=== PATIENT | male | born 1980 | race Caucasian/White ===

== ENCOUNTER 2017-01-27 12:46 | Emergency (ER) | payer OTHER ==
[~2017-01-27 12:46] MED LIST: ALBUTEROL17 GM INH; EFFEXOR75 M3 PO
[2017-01-27] MEDS ORDERED: WELLBUTRIN (13:03)
[2017-01-27] MEDS ORDERED: EFFEXOR (13:03)
[2017-01-27] MEDS ORDERED: ZYRTEC (13:03)
== END 2017-01-27 13:55 | disposition home or self-care (01) ==
LOC: SED 12:46
DX: S39.012A Strain of muscle, fascia and tendon of lower back, initial encounter (principal); J45.909 Unspecified asthma, uncomplicated; F17.200 Nicotine dependence, unspecified, uncomplicated; Z79.899 Other long term (current) drug therapy; X58.XXXA Exposure to other specified factors, initial encounter
CPT/HCPCS: 96372; 99283; J1885; J2360

== ENCOUNTER 2017-03-10 15:44 | Emergency (ER) | payer OTHER ==
[~2017-03-10 15:44] MED LIST changes: +EFFEXOR; +WELLBUTRIN; +ZYRTEC
[2017-03-10 18:07] LABS: BASOPHIL% 0.5 % (0-2.5); EOSINOPHIL# 0.1 X10e3 (0-0.7); EOSINOPHIL% 1.6 % (0.0-7.0); HEMATOCRIT 46.6 % (38.0-50.0); HEMOGLOBIN 15.8 gm/dL (13.0-16.0); LYMPHOCYTE# 1.7 X10e3 (1.0-3.5); MEAN CELL VOLUME 86.7 FL (83-96); MEAN CORPUSCULAR HEMOGLOBIN 29.4 PG (28-34); MEAN CORPUSCULAR HGB CONC 33.9 g/dL (30-36); MEAN PLATELET VOLUME 7.9 FL (6.5-11.5); MONOCYTE# 0.6 X10e3 (0-1.0); MONOCYTE% 8.1 % (3.0-12.0); NEUTROPHIL# 4.9 X10e3 (1.5-7.1); NEUTROPHIL% 66.8 % (40-75); PLATELET COUNT 272 X10e3 (140-420); RED BLOOD COUNT 5.37 X10e (3.90-5.60); WHITE BLOOD COUNT 7.4 X10e3 (4.0-10.5)
[2017-03-10 18:08] LABS: DIFF IND NO
[2017-03-10 18:19] LABS: AMPHETAMINE NEG (NEG); BARBITURATES NEG (NEG); BENZODIAZEPINES NEG (NEG); COCAINE NEG (NEG); MARIJUANA NEG (NEG); OPIATES NEG (NEG); TRICYCLIC ANTIDEPRESSANTS NEG (NEG); U METHADONE NEG (NEG)
[2017-03-10 18:29] LABS: BLOOD UREA NITROGEN 15 mg/dL (9-23); CALCIUM SERUM 9.5 mg/dL (8.4-10.2); CARBON DIOXIDE 27 mmol/L (22-31); CHLORIDE 104 mmol/L (100-111); GLOM FILT RATE Estimated 96.4 mL/min (>60); GLUCOSE FASTING 104 mg/dL (70-110); POTASSIUM 3.8 mmol/L (3.5-5.1); SODIUM 138 mmol/L (135-145)
[2017-03-10 18:46] LABS: ALCOHOL BLOOD <5 mg/dL (0)
== END 2017-03-11 09:20 | disposition short-term general hospital (02) ==
LOC: CED 15:44
PROVIDERS: Emergency Medicine
DX: S61.512A Laceration without foreign body of left wrist, initial encounter (principal); J45.909 Unspecified asthma, uncomplicated; R45.851 Suicidal ideations; F17.200 Nicotine dependence, unspecified, uncomplicated; Z79.899 Other long term (current) drug therapy; X78.9XXA Intentional self-harm by unspecified sharp object, initial encounter
CPT/HCPCS: 80048; 80307; 85025; 94640; 99285; G0480

== ENCOUNTER 2017-03-10 18:00 | Inpatient (IN) | payer OTHER ==
--- NOTE | ~2017-03-10 | CO ---
Unit #: [id number] #: [id number] Patient: KARLOS BURGOS [id number] [place] [address] [id number] MR#: [id number] NAME: KARLOS BURGOS ROOM: P259 Age: 36 Sex: M Admission Date: 03/11/2017 : 1980 Attending Physician: Rudy Marquez M.D. Primary Care Physician: Maura Landry Consultation Date: 03/12/2017 CONSULTATION REPORT SUBJECTIVE Karlos is a 36-year-old who complains of sore throat and with a low-grade temperature. Strep screen was negative. On exam, his throat was red without exudate. Neck was supple without lymphadenopathy. ASSESSMENT Pharyngitis, most likely viral. PLAN He is being discharged on 03/13/2017. He knows to follow up with his PCP. Dictated by... Merry Stewart P.A.-C. for Joaquin Rose/caleb TD: 03/14/2017 02:24 JOB #: [id number] CONSULTATION REPORT Page 1 of 1 X Merry Stewart CONSULTATION REPORT
--- NOTE | ~2017-03-10 | HP ---
Unit #: [id number] #: [id number] Patient: KARLOS BURGOS [id number] [place] [address] [id number] MR#: [id number] NAME: KARLOS BURGOS ROOM: P259 Age: 36 Sex: M Admission Date: 03/11/2017 : 1980 Attending Physician: Rudy Marquez M.D. Admitting Physician: Rudy Marquez M.D. Primary Care Physician: Maura Landry HISTORY AND PHYSICAL HISTORY OF PRESENT ILLNESS Karlos is a 36 year old admitted to [address] [place] [address] with depression and after cutting his wrist after an argument with his . He is admitted on a 72 hour hold. PAST MEDICAL HISTORY Asthma. PAST SURGICAL HISTORY Nothing reported. ALLERGIES No known drug allergies. SOCIAL HISTORY Smokes one-half pack per day. Denies alcohol and illicit drug use. FAMILY HISTORY Medically noncontributory. REVIEW OF SYSTEMS CONSTITUTIONAL: No fever or chills. HEENT: Denies any sore throat, ear pain or runny nose. CARDIOVASCULAR: Denies chest pain, irregular heart rhythm or palpitations. CHEST: Denies shortness of breath or cough. No hemoptysis. GASTROINTESTINAL: Denies nausea, vomiting, diarrhea or chronic constipation. ENDOCRINE: Denies history of increased thirst or urination. No recent significant weight loss or gain. GENITOURINARY: Denies dysuria, frequency, or hematuria. SKIN: Denies any rashes. HEMATOLOGIC: Denies history of increased bleeding or bruising. MUSCULOSKELETAL: Denies any hot, swollen joints. No generalized muscle pain. NEUROLOGIC: Denies problems with vision or speech. No frequent, severe headaches. No numbness, tingling or weakness in any extremities. Denies loss of bladder or bowel control. CURRENT MEDICATIONS 1. Milk of Magnesia p.r.n. 2. Maalox p.r.n. 3. Tylenol p.r.n. Unit #: [id number] #: [id number] Patient: KARLOS BURGOS 4. Proventil inhaler p.r.n. 5. Geodon 40 mg q day 6. Nicotine patch 7 mg q day 7. Wellbutrin XL 300 mg q.a.m. PHYSICAL EXAMINATION GENERAL: Alert, well-nourished, in no apparent distress. VITAL SIGNS: Blood pressure 130/74, heart rate 76, respirations 16, temperature 98.6. WEIGHT: 210 pounds. HEIGHT: 5'8". SKIN: Warm and dry without rash. He has a significant laceration along his left wrist. The area has been durmabonded. There is adequate skin approximation. There is no increased redness, swelling, heat or pus noted. Neurovascular is intact. HEENT: Normocephalic. TMs not viewed. Oral and nasal passages clear. Conjunctivae clear. Pupils equal, round and reactive to light and accommodation. Extraocular movements intact. NECK: Supple without lymphadenopathy or thyromegaly. HEART: Regular rate and rhythm without murmur. LUNGS: Clear. ABDOMEN: Soft, nontender. : Not done. EXTREMITIES: No evidence of cyanosis, clubbing or edema. Moves all extremities without focal deficit. NEUROLOGICAL: Grossly within normal limits. Cranial Nerves: II: Visual mims are intact. III, IV AND : Extraocular movements are intact. Pupils are equal, round and reactive to light. V: Facial sensation is grossly normal. VII: Facial movements and expression are normal. VIII: Auditory acuity grossly intact. IX, X: Uvula is midline. Phonation is normal. XI: Patient shrugs shoulders and turns head normally. XII: Tongue protrudes in the midline. Sensory and Motor Function: Sensory and motor sensation is grossly normal. Motor: moves all extremities well. Coordination: Gait is normal. Deep Tendon Reflexes: Intact. IMPRESSION 1. Psychiatric admission. 2. Recent self-inflicted laceration to his left wrist. RECOMMENDATIONS PSYCHIATRIC: Per psychiatrist. MEDICAL: 1. I see no contraindications to participating in facility's activities. 2. Keep the area clean with soap and water. No further Rx. MEDICAL PROGNOSIS Good. MEDICAL CONDITION Stable. Unit #: [id number] #: [id number] Patient: KARLOS BURGOS Dictated by... Merry Stewart P.A.-C. for Joaquin Rose/gagan TD: 03/11/2017 22:27 JOB #: [id number] HISTORY AND PHYSICAL Page 1 of 1 X Merry Stewart HISTORY AND PHYSICAL
--- NOTE | ~2017-03-10 | DS ---
Unit #: [id number] #: [id number] Patient: MONO BURGOS [id number] [place] [address] [id number] I MR#: [id number] NAME: MONO BURGOS ROOM: [facility] Age: 36 Sex: M Admission Date: 03/11/2017 : 1980 Discharge Date: 03/13/2017 Attending Physician: Rudy Marquez M.D. Primary Care Physician: Maura Landry DISCHARGE SUMMARY REASON FOR ADMISSION The patient is a 36-year-old white male, admitted to the [facility] after a self-inflicted wrist laceration following an argument with his . HOSPITAL COURSE The patient was admitted to the [facility] unit and placed on suicide precautions. He was continued on previously prescribed medications and venlafaxine was increased from 37.5 to 75 mg daily. The patient tolerated the medications well and was contrite over the ensuing hospitalization. He requested discharge on 03/12/2017, but agreed to one further day of observation. By 03/13/2017, the patient remained in bright spirits and requested discharge, it was so ordered. FINAL DIAGNOSES 1. Major depressive disorder, recurrent, moderate. 2. Adjustment disorder, depressed mood. 3. Asthma. DISPOSITION ON DISCHARGE The patient was discharged on the following medications; Effexor XR 75 mg q.a.m. for depression, Wellbutrin XL 300 mg daily for depression, Proventil HFA 2 puffs q.4 hours p.r.n. shortness of air. DISCHARGE INSTRUCTIONS No dietary or physical restrictions were placed on the patient at the time of discharge. FOLLOWUP Followup will take place through the auspices of community mental health resources. PROGNOSIS The patient's prognosis is considered good. Dictated by... Rudy Marquez M.D. CB/caleb TD: 03/14/2017 07:52 JOB #: [id number] Unit #: [id number] #: [id number] Patient: MONO BURGOS DISCHARGE SUMMARY Page 1 of 1 X Rudy Marquez MD X DISCHARGE SUMMARY
--- NOTE | ~2017-03-10 | PA ---
Unit #: [id number] #: [id number] Patient: MONO BURGOS [id number] [facility] [address] [place] [address] [id number] I MR#: [id number] NAME: MONO BURGOS ROOM: P259 Age: 36 Sex: M Admission Date: 03/11/2017 : 1980 Date of Assessment: 03/12/2017 Attending Physician: Rudy Marquez M.D. Admitting Physician: Rudy Marquez M.D. Primary Care Physician: Maura Landry PSYCHIATRIC ASSESSMENT IDENTIFYING INFORMATION The patient is a 36-year-old white male, admitted to the [address] [place] [address] unit after a he had sustained a self-inflicted wrist laceration. INFORMANT(S) Patient, reliability is good. CHIEF COMPLAINT "I did something crazy." HISTORY OF PRESENT ILLNESS The patient is a 36-year-old white male, who is currently followed at [facility]. He is prescribed Effexor and Wellbutrin through the auspices of that agency. He also reports that he has been prescribed Geodon but is not compliant with that medication. The patient reports that he and his had been involved in an argument in which she told him that she hated him and this prompted him to make a cut on his wrist which did not require suturing but did require "super glue." The patient is today contrite over this episode and states that he and his have reconciled and he is requesting discharge from the hospital and is denying current suicidal ideation. He did not write a suicide note and reports no previous suicide attempts or gestures for psychiatric hospitalization. The patient used a wooden box maker to cut himself. He lives with his and three children and is employed as a appliance mechanic. He is appropriately contrite over the ensuing hospitalization and denies involvement of alcohol or street drugs in this episode. PAST PSYCHIATRIC HISTORY As above. PAST MEDICAL HISTORY Noncontributory. MEDICATIONS 1. Geodon 2. Wellbutrin 3. Venlafaxine 4. Ventolin ALLERGIES None. FAMILY HISTORY Unit #: [id number] #: [id number] Patient: MONO BURGOS Noncontributory. SOCIAL HISTORY The patient is employed as a appliance mechanic. He lives with his and three children. He denies use of alcohol, tobacco, or street drugs. His drug screen was negative. MENTAL STATUS EXAM At this time, reveals the patient to be a well-developed, well-nourished white male appearing his stated age, he is in no apparent physical distress at the time of the examination. He is awake, alert, and oriented in all spheres. His mood is mildly dysphoric. His affect congruent. Speech is generally relevant and coherent. There are no gross deficits to memory or cognition noted. Intelligence is judged to be in the average range based on fund of knowledge. The patient is cooperative throughout the interview. He is currently denying suicidal or homicidal ideations, or psychotic features. Judgment and insight appear to be intact. ASSETS Motivation for change. LIABILITIES None noted. DIAGNOSTIC IMPRESSION [place] I: Major depressive disorder, recurrent, moderate. Adjustment disorder with depressed mood. [place] II: [place] III: Asthma. Status post self-inflicted wrist laceration. HOSPITAL COURSE We will restart the patient's previously prescribed medications and discontinuing Geodon as he states that he is not taking this medication, I will increase his Effexor XR to a more definitive dose of 75 mg daily. ESTIMATED LENGTH OF STAY IN THE HOSPITAL Two days with follow up to take place through the auspices of [facility]. Dictated by... Rudy Marquez M.D. JAYCOB/kathy TD: 03/12/2017 13:19 JOB #: [id number] Unit #: [id number] #: [id number] Patient: MONO BURGOS PSYCHIATRIC ASSESSMENT Page 1 of 1 X Rudy Marquez MD X PSYCHIATRIC ASSESSMENT
[2017-03-12 09:54] LABS: URINE APPEARANCE CLEAR; URINE BILIRUBIN NEG (NEG); URINE BLOOD NEG (NEG); URINE COLOR YELLOW; URINE GLUCOSE NEG (NEG); URINE KETONE NEG (NEG); URINE LEUKOCYTE ESTERASE NEG (NEG); URINE NITRATE NEG (NEG); URINE PH 6.5 (5-8); URINE PROTEIN NEG (NEG)
== END 2017-03-13 14:50 | disposition home or self-care (01) | DRG 885 ==
LOC: P2L 03-11 09:53 → POF 03-11 09:53 → P2L 03-11 12:13
PROVIDERS: Specialist
DX: F33.1 Major depressive disorder, recurrent, moderate (principal); F17.210 Nicotine dependence, cigarettes, uncomplicated; F43.21 Adjustment disorder with depressed mood; J45.909 Unspecified asthma, uncomplicated; S61.519D Laceration without foreign body of unspecified wrist, subsequent encounter; X83.8XXD Intentional self-harm by other specified means, subsequent encounter
CPT/HCPCS: 81003; 87651

== ENCOUNTER 2017-04-28 20:26 | Emergency (ER) | payer OTHER ==
[~2017-04-28] VITALS: Ht 177.8 cm; Wt 95.2 kg
--- NOTE | ~2017-04-28 | CR63 ---
[facility]. [facility] A Service of [facility] RADIOLOGY TEXT RESULTS PATIENT: MONO BURGOS LOCATION: SED : [birth year] UNIT #: [id number] AGE: [address]: Tamiko Cosme APRN SEX: M ORDER DR: [id number] [address] [address] [id number] MR#: [id number] Acc #: [id number] NAME: MONO BURGOS : 1980 SEX: M STUDY DATE/TIME: 04/28/2017 21:07 UNIT: SED ROOM: STUDY DESCRIPTION: CR Chest 2 View Attending Physician: Tamiko Cosme A.P.R.N. Ordering Physician: Tamiko Bazzi A.P.R.N. Primary Care Physician: Anshu Barclay M.D. MEDICAL IMAGING REPORT This report is preliminary unless electronic signature is present. EXAM Two-view chest 04/28/2017. HISTORY 36-year-old male with cough and fever for a couple of days. COMPARISON Chest 08/19/2016. FINDINGS 2 views of the chest demonstrate clear lungs. No pleural effusion or pneumothorax. Heart size and mediastinum normal. Pulmonary vasculature normal. Sternal plate again noted. IMPRESSION No acute cardiopulmonary findings. Dictated by... Campos Dowd M.D. THIS IS AN ELECTRONICALLY VERIFIED REPORT Campos Dowd M.D. at 04/29/2017 10:55 AM MARISOL/jesus TD: 04/29/2017 10:40 JOB #: [id number] MEDICAL IMAGING REPORT Page 1 of 1
== END 2017-04-28 22:13 | disposition home or self-care (01) ==
LOC: SED 20:26
DX: J06.9 Acute upper respiratory infection, unspecified (principal); J45.909 Unspecified asthma, uncomplicated; F32.9 Major depressive disorder, single episode, unspecified; F17.200 Nicotine dependence, unspecified, uncomplicated; Z79.899 Other long term (current) drug therapy
CPT/HCPCS: 71020; 87651; 99283